=== PATIENT | male | born 1990 | race Hispanic/Latino ===

== ENCOUNTER 2023-10-01 14:14 | Emergency (ER) | payer BC ==
[~2023-10-01] VITALS: Ht 177.8 cm; Wt 87.1 kg
[2023-10-01 14:18] VITALS: BP 120/70; PULSE 58; RESP 18
[2023-10-01] MEDS: OCTYL 2-CYANOACRYLATE 1 EACH TP ONE (16:14)
[2023-10-01] MEDS: OCTYL 2-CYANOACRYLATE 1 EACH TP SCH (16:14)
[2023-10-01] MEDS: TETANUS/DIPHTHERIA TOXOID [ADULT] 0.5 ML VIAL IM ONE (16:16)
[2023-10-01] MEDS ORDERED: AMOX1TAB16 PO (17:26)
[2023-10-01] MEDS ORDERED: IBUP-2070 PO (17:26)
[2023-10-01] MEDS: AMOX/CLAV 875/125MG TAB PO ONE ×2 (17:44)
== END 2023-10-01 17:46 | disposition home or self-care (01) ==
LOC: EDH 14:14
DX: S02.40CA Maxillary fracture, right side, initial encounter for closed fracture (principal); S01.81XA Laceration without foreign body of other part of head, initial encounter; Z90.49 Acquired absence of other specified parts of digestive tract; V89.2XXA Person injured in unspecified motor-vehicle accident, traffic, initial encounter; Y93.I9 Activity, other involving external motion; Y92.488 Other paved roadways as the place of occurrence of the external cause; Y99.8 Other external cause status
CPT/HCPCS: 12011; 70450; 70486; 90471; 90714